=== PATIENT | male | born 1990 | race African-American/Black ===

== ENCOUNTER 2016-12-08 13:41 | Emergency (ER) ==
[2016-12-08 13:43] VITALS: BMI 40.9
[2016-12-08 13:48] VITALS: BP 129/87; TEMP 97.2
--- NOTE | 2016-12-08 15:24 | CT ---
EXAM: CT head without contrast. HISTORY: Initial presentation for head trauma. COMPARISON: None available. TECHNIQUE: Multiple axial images of the brain were obtained from the skull base through the vertex without intravenous contrast. FINDINGS: Motion artifact degrades image quality. There is no intracranial hemorrhage or extraaxia l collection. The peterson-white differentiation is maintained without evidence for acute large vascula r territory infarction. The cortical sulci and basal cisterns are well visualized. There is no hyd rocephalus, mass effect, or midline shift. The paranasal sinuses and mastoid air cells are clear. The calvarium is intact. IMPRESSION: No acute intracranial abnormality within the limitations of motion artifact.
--- NOTE | 2016-12-08 15:28 | CT ---
EXAM: CT cervical spine without contrast. HISTORY: Initial presentation for neck trauma. COMPARISON: None available. TECHNIQUE: Multiple axial images of the cervical spine were obtained without intravenous contrast. Images were reformatted in the sagittal and coronal planes. FINDINGS: There is normal curvature and alignment. Vertebral body and intervertebral disc heights are maintained. No fracture or subluxation is seen. 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 There is disc osteophyte formation at C3-4 which c auses mild central canal stenosis. The prevertebral soft tissues are unremarkable. IMPRESSION: No acute abnormality of the cervical spine.
--- NOTE | 2016-12-08 15:34 | DI ---
EXAM: Radiographs, left hand HISTORY: Left hand pain. Palpable area on the lateral wrist. COMPARISON: None available. TECHNIQUE: Three views. FINDINGS: Bone mineralization is normal. There is no fracture or dislocation. The joint spaces ar e maintained. No focal soft tissue abnormality is seen. IMPRESSION: No abnormality of the left hand.
--- NOTE | 2016-12-08 15:34 | DI ---
EXAM: Left wrist three-view HISTORY: Trauma COMPARISON: None FINDINGS: The bones are normal. The joints are normal. No focal soft tissue abnormality. IMPERSSION: Normal examination.
--- NOTE | 2016-12-08 15:43 | ED.PDOC ---
General ED Provider: Dr. JACOBY DRUMMOND Chief Complaint: Fall Stated Complaint: fall head injury hand/ wrist pain Time Seen by Physician: 14:00 Mode of Arrival: Walk-In Information Source: Family Exam Limitations: No limitations Primary Care Provider: KETURAH LANIER Nursing and Triage Documentation Reviewed and Agree: Yes Trauma/Injury Complaint Exam - Trauma Complaint/Exam Location of Pain or Injury: Reports: Head, Neck, LUE (hand/wrist) Mechanism of Injury: Reports: Fall Onset/Duration: 1 hr Symptoms Are: Resolved Initial Severity: Mild Current Severity: None Character: Reports: Dull Aggravating: Reports: None Alleviating: Reports: None Associated Signs and Symptoms: Denies: LOC, Confusion, Memory loss, Lethargy, Vomiting, Bleeding, Bruising, Swelling, Extremity disuse, Painful respiration, Hoarseness, Dysphagia, Hemoptysis, Significant blood loss Penetrating Injury Risk Factors: Reports: None Nexus Low Risk Criteria: No evidence of intoxicat., No Altered LOC, No focal neuro deficit, No distracting injuries Review of Systems - Review Of Systems Constitutional: Reports: No symptoms Eyes: Reports: No symptoms Ears, Nose, Mouth, Throat: Reports: No symptoms Respiratory: Reports: No symptoms Cardiac: Reports: No symptoms GI: Reports: No symptoms : Reports: No symptoms Musculoskeletal: Reports: Joint pain (wrist and hand) Skin: Reports: No symptoms Neurological: Reports: Headache Endocrine: Reports: No symptoms Hematologic/Lymphatic: Reports: No symptoms All Other Systems: Reviewed and Negative Past Medical History - Past Medical History Previously Healthy: Yes Endocrine: Reports: None Cardiovascular: Reports: None Respiratory: Reports: None Hematological: Reports: None Gastrointestinal: Reports: None Genitourinary: Reports: None Neuro/Psych: Reports: None Musculoskeletal: Reports: None 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) - Surgical History General Surgical History: Reports: None - Family History Family History: Reports: None - Social History Smoking Status: Never smoker Hx Substance Use: No Alcohol Screening: None Physical Exam - Physical Exam Appearance: Well-appearing, No pain distress, Well-nourished Eyes: JOVITA, EOMI, Conjunctiva clear ENT: Ears normal, Nose normal, Oropharynx normal Respiratory: Airway patent, Breath sounds clear, Breath sounds equal, Respirations nonlabored Cardiovascular: RRR, Pulses normal, No rub, No murmur GI/: Soft, Nontender, No masses, Bowel sounds normal, No Organomegaly Musculoskeletal: Normal strength, ROM intact, No edema, No calf tenderness Skin: Warm, Dry, Normal color Neurological: Sensation intact, Motor intact, Reflexes intact, Cranial nerves intact, Alert, Oriented Psychiatric: Affect appropriate, Mood appropriate Interpretation - Radiology Interpretation Radiology Interpretation By: Radiologist Radiology Results: No acute changes Critical Care Note - Critical Care Note Total Time (mins): 0 Course - Course Orders, Labs, Meds: Orders Category Date Time Status CT CERVICAL SPINE W/O CONTRAST Stat RADS 12/08/16 14:[address] HEAD W/O CONTRAST Stat RADS 12/08/16 14:31 Ordered HAND, LEFT 3 VIEWS Stat RADS 12/08/16 14:32 Ordered WRIST, LEFT 3 VIEWS Stat RADS 12/08/16 14:32 Ordered Vital Signs: Temp Pulse Resp BP Pulse Ox 12/08/16 13:44 97.2 F L 86 20 129/87 96 Departure - Departure Time of Disposition: 15:42 Disposition: HOME SELF-CARE Discharge Problem: Left wrist sprain Head injury Qualifiers: Encounter type: initial encounter Qualifier Code: (S09.90XA) Unspecified injury of head, initial encounter Instructions: Head Injury (ED) Condition: Good Pt referred to PMD for follow-up: No Additional Instructions: Please call your Family Physician as soon as possible to schedule a follow-up appointment. Allergies/Adverse Reactions: Allergies No Known Allergies Allergy (Verified 12/08/16 13:49) Home Medications: Ambulatory Orders 1 [No Reported Medications] 02/26/15
== END 2016-12-08 15:45 | disposition home or self-care (01) ==
LOC: ED 13:41
DX: S09.90XA Unspecified injury of head, initial encounter (principal); S63.502A Unspecified sprain of left wrist, initial encounter; M54.2 Cervicalgia; W19.XXXA Unspecified fall, initial encounter
CPT/HCPCS: 99283

== ENCOUNTER 2018-06-14 13:08 | Outpatient (CLI) ==
--- NOTE | 2018-06-14 17:14 | US ---
Exam: Powers-scale and color duplex Doppler ultrasonographic evaluation of the right lower extremity v enous structures with spectral waveform analysis. Comparison: 02/26/2015. Reason for exam: Leg swelling. Image interpretation is limited due to edematous change. FINDINGS: There is spontaneous flow with compression and augmentation in the right common femoral, g reater saphenous, profunda, superficial femoral, popliteal, and peroneal veins. The posterior tibial and anterior tibial veins are not seen on the examination. Impression: 1. No ultrasonographic evidence of thrombus is seen in the right common femoral, greater saphenous, p rofunda, superficial femoral, popliteal, peroneal veins. 2. The right posterior tibial and anterior tibial veins are not seen on the exam likely secondary to edema.
== END 2018-06-14 13:09 | disposition home or self-care (01) ==
LOC: RAD 13:08
PROVIDERS: ATTEND Family Medicine
DX: I87.2 Venous insufficiency (chronic) (peripheral) (principal); M79.89 Other specified soft tissue disorders

== ENCOUNTER 2018-06-16 12:50 | Emergency (ER) ==
[2018-06-16 12:57] VITALS: BP 122/85; TEMP 97; BMI 43.6
--- NOTE | 2018-06-16 13:17 | ED.PDOC ---
General ED Provider: Dr. TERRY GRACE-ER Chief Complaint: Extremity Swelling/Pain Stated Complaint: his leg is swollen and tender and draining pus Time Seen by Physician: 13:15 Mode of Arrival: Walk-In Information Source: Family Exam Limitations: No limitations Primary Care Provider: KETURAH ARZOLA Nursing and Triage Documentation Reviewed and Agree: Yes Does patient meet sepsis criteria?: No System Inflammatory Response Syndrome: Not Applicable Sepsis Protocol: For patient's 13 years and over: Temp is 96.8 and below OR 101 and greater Pulse >90 BPM Resp >20/minute Acutely Altered Mental Status Are patient's symptoms suggestive of a new infection, such as: -Pneumonia -Skin, Soft Tissue -Endocarditis -UTI -Bone, Joint Infection -Implantable Device -Acute Abdominal Infection -Wound Infection -Meningitis -Blood Stream Catheter Infection -Unknown Skin Complaint Exam - Skin/Soft Tissue Complaint/Exam Onset/Duration: several days Symptoms Are: Still present Timing: Constant Initial Severity: Mild Current Severity: Moderate Location: right calf Character: Reports: Redness, Swelling, Raised, Painful Aggravating: Reports: None Alleviating: Reports: None Associated Signs and Symptoms: Reports: Fever, Chills, Drainage, Tenderness Recent Exposure to Others w/Similar Symptoms: No Skin Findings: Present: Erythema, Induration, Skin lesion, Weeping skin Joint Tenderness Present: No Differential Diagnoses: Abscess Review of Systems - Review Of Systems Constitutional: Reports: No symptoms Eyes: Reports: No symptoms Ears, Nose, Mouth, Throat: Reports: No symptoms Respiratory: Reports: No symptoms Cardiac: Reports: No symptoms GI: Reports: No symptoms : Reports: No symptoms Musculoskeletal: Reports: Muscle pain Skin: Reports: Change in color Neurological: Reports: No symptoms Endocrine: Reports: No symptoms Hematologic/Lymphatic: Reports: No symptoms All Other Systems: Reviewed and Negative Past Medical History - Past Medical History Previously Healthy: Yes Endocrine: Reports: None Cardiovascular: Reports: None Respiratory: Reports: None Hematological: Reports: None Gastrointestinal: Reports: None Genitourinary: Reports: None Neuro/Psych: Reports: None Musculoskeletal: Reports: None 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) - Surgical History General Surgical History: Reports: None - Family History Family History: Reports: None - Social History Smoking Status: Never smoker Hx Substance Use: No Alcohol Screening: None Physical Exam - Physical Exam Appearance: Well-appearing, No pain distress, Well-nourished Pain Distress: Moderate Eyes: JOVITA, EOMI, Conjunctiva clear ENT: Ears normal, Nose normal, Oropharynx normal Neck: Supple Respiratory: Airway patent, Breath sounds clear, Breath sounds equal, Respirations nonlabored Cardiovascular: RRR, Pulses normal, No rub, No murmur GI/: Soft Musculoskeletal: Limited ROM Skin: Warm, Dry, Normal color Neurological: Sensation intact, Motor intact, Reflexes intact, Cranial nerves intact, Alert, Oriented Psychiatric: Affect appropriate, Mood appropriate Physician Notification - Case Discussed Physician Notified: dr arzola Time of Notification: 13:17 Critical Care Note - Critical Care Note Total Time (mins): 0 Course - Course Vital Signs: Temp Pulse Resp BP Pulse Ox 06/16/18 12:51 97.0 F L 96 H 20 122/85 95 Departure - Departure Time of Disposition: 13:17 Disposition: [facility]SF SHORT-TRM HOSP Discharge Problem: Abscess of lower extremity Instructions: Abscess (ED) Condition: Fair Pt referred to PMD for follow-up: Yes IPMP verified?: No Allergies/Adverse Reactions: Allergies No Known Allergies Allergy (Verified 06/16/18 12:57) Home Medications: Ambulatory Orders 1 [No Reported Medications] 02/26/15 Transfer Form Completed: Yes Disposition Discussed With: Patient, Family
== END 2018-06-16 13:37 | disposition short-term general hospital (02) ==
LOC: ED 12:50
DX: L02.415 Cutaneous abscess of right lower limb (principal)
CPT/HCPCS: 99285